=== PATIENT | female | born 1995 | race Caucasian/White ===

== ENCOUNTER 2021-12-31 16:24 | Emergency (ER) | payer OTHER ==
[~2021-12-31 16:24] MED LIST: BACTRIM DS TAB1 EACH PO; IBUPROFEN800 MG PO; ZOFRAN ODT4 MG SL; ZOFRAN4 MG PO
[2021-12-31 17:16] LABS: HEMOGLOBIN 12.8 gm/dl (12.3-15.3); RED BLOOD COUNT 4.09 M/UL (4.00-5.10); WHITE BLOOD COUNT 3.4 K/UL (4.5-11.0)
[2021-12-31 17:41] LABS: BUN/CREATININE RATIO 10 (0-10)
[2022-01-01] MEDS ORDERED: ZOFRAN ODT 4 MG4 MG SL (22:57)
[2022-01-01] MEDS ORDERED: MACROBID 100 M100 MG PO (22:57)
[2022-01-03 22:08] LABS: CHLAMYDIA TRACHOMATIS, NAA Negative (Negative); NEISSERIA GONORRHOEAE, NAA Negative (Negative)
== END 2021-12-31 23:28 | disposition home or self-care (01) ==
LOC: ER1 16:24
PROVIDERS: Family Medicine; Physician Assistant
DX: I95.1 Orthostatic hypotension (principal); N39.0 Urinary tract infection, site not specified; E86.0 Dehydration; Z20.822 Contact with and (suspected) exposure to COVID-19
CPT/HCPCS: 80053; 81001; 83605; 84703; 85025; 87040; 87086; 87210; 93005; 96361; 96374; 96375; 99284; J0696; J2405; Q9967; U0002